=== PATIENT | female | born 1960 | race Caucasian/White ===

== ENCOUNTER → 2019-04-08 10:54 | Outpatient (CLI) | payer MEDICARE, MEDICAID | END | disposition home or self-care (01) | LOC: D.NM 10:54 | PROVIDERS: ATTEND Internal Medicine Gastroenterology | DX: R11.2 Nausea with vomiting, unspecified (principal); R10.13 Epigastric pain; R12 Heartburn ==

== ENCOUNTER → 2019-04-12 07:56 | Outpatient (CLI) | payer MEDICARE, MEDICAID | END | disposition home or self-care (01) | LOC: D.RAD 07:56 | PROVIDERS: ATTEND Internal Medicine Gastroenterology | DX: R11.2 Nausea with vomiting, unspecified (principal); K21.9 Gastro-esophageal reflux disease without esophagitis; R10.13 Epigastric pain ==

== ENCOUNTER 2020-04-23 07:29 | Day surgery (SDC) | payer MEDICARE, MEDICAID ==
[~2020-04-23] VITALS: Ht 152.4 cm; Wt 107.7 kg
--- NOTE | ~2020-04-23 | OP ---
PATIENT NAME: PAM GRANT MEDICAL RECORD: [id number] :56 LOCATION:[facility] ADMISSION DATE: SURGEON: DOMINGA UNGER DO DATE OF OPERATION: 04/23/2020 PROCEDURE: Colonoscopy with polypectomy. INDICATION FOR PROCEDURE: History of colon polyps and a family history positive for colon cancer in the patient's brother. SCOPE: Olympus video pediatric colonoscope. MEDICATIONS: Propofol 700 mg IV per anesthesia. WITHDRAWAL TIME: 18 minutes. ESTIMATED BLOOD LOSS: Minimal. COMPLICATIONS: None. FINDINGS: Informed consent was given. The patient was sedated and intubated for protection of her airway. She was placed on her left side. A digital rectal examination was performed and was normal. The endoscope was then advanced under direct visualization through the rectum to the cecum, confirmed by the presence of the appendiceal orifice and ileocecal valve. The endoscope was slowly withdrawn. Mucosa was carefully examined. Prep quality was poor. There was some retained fluid and contents in the cecum and a small amount throughout the entire colon, which made some visualization impossible. That being said, mucosa outside of the cecum was adequately visualized. There was 1 polyp visualized on today's examination. It was a benign-appearing sessile polyp located in the ascending colon, which measured approximately 3-4 mm in diameter. It was removed using hot forceps. There were no other polyps seen. There was no evidence of diverticulosis. Retroflexion was performed in the rectum with visualization of grade I internal hemorrhoids without bleeding. The endoscope was withdrawn from the patient. The patient tolerated the procedure well and there were no complications. IMPRESSION: 1. A single benign-appearing sessile polyp located in the ascending colon, status post polypectomy with hot forceps. 2. Grade I internal hemorrhoids without bleeding. PLAN AND RECOMMENDATIONS: 1. Discharge home when recovery parameters are met. 2. Follow up biopsy specimen results. 3. High-fiber diet. 4. Continue current medications. 5. Recall colonoscopy in 3 years. NTS:[id number] Voice Confirmation ID: [id number] DOCUMENT ID: [id number] OPERATIVE REPORT [id number] PAM GRANT DOMINGA UNGER DO CC: [id number] DICTATION DATE: 04/23/20 1042 [place]: 04/23/202119 [facility] [place] 04/23/20 [facility] [address] [place] [address]
[2020-04-23 07:55] LABS: HEMATOCRIT 36.9 % (36.0-48.0); HEMOGLOBIN 11.4 g/dL (12-16); MCH 26.6 pg (26.0-34.0); MCHC 30.9 g/dL (31.0-37.0); MEAN PLATELET VOLUME 9.8 fL (7.4-10.4); RBC 4.29 10x6/uL (4.00-5.40); RDW 15.1 % (11.5-14.5); WBC 6.1 10x3/uL (4.8-10.8)
[2020-04-23 08:02] LABS: ALBUMIN 3.9 g/dL (3.4-5.0); ANION GAP 13.1 mmol/L (8-16); BILIRUBIN - TOTAL 0.41 mg/dL (0.2-1.3); CALCIUM 9.3 mg/dL (8.5-10.1); CARBON DIOXIDE 27.8 mmol/L (21.0-32.0); CREATININE - SERUM 1.4 mg/dL (0.6-1.3); POTASSIUM - SERUM 4.9 mmol/L (3.5-5.1); PROTEIN - SERUM 8.3 g/dL (6.4-8.2)
[2020-04-23] MEDS ORDERED: ULTRAM50 MG PO (08:07)
[2020-04-23] MEDS ORDERED: DONEPEZIL HCL5 MG PO (08:07)
[2020-04-23] MEDS ORDERED: BUSPAR 15 MG TA15 MG PO (08:08)
[2020-04-23] MEDS ORDERED: LYRICA50 MG PO (08:09)
[2020-04-23] MEDS ORDERED: ZETIA10 MG PO (08:09)
[2020-04-23] MEDS ORDERED: ZOLOFT100 MG PO (08:10)
[2020-04-23] MEDS ORDERED: REGLAN5 MG PO (08:10)
[2020-04-23] MEDS ORDERED: GLUCOPHAGE500 MG PO (08:11)
[2020-04-23] MEDS ORDERED: LISINOPRIL10 MG PO (08:11)
[2020-04-23] MEDS ORDERED: ZANAFLEX4 MG PO (08:11)
[2020-04-23] MEDS ORDERED: FISH OIL 1,0001 CA1 PO (08:12)
[2020-04-23] MEDS ORDERED: SUPER B COMPLE1 EAC1 PO (08:13)
[2020-04-23 08:19] VITALS: BP 107/72; Ht 152.4 cm; Wt 107.7 kg
--- NOTE | 2020-04-23 11:45 | NUR ---
PATIENT DRESSED IN PERSONAL CLOTHING. PIV DC'D WITH TIP INTACT. DISCHARGE INSTRUCTIONS REVIEWED WITH PATIENT AND ANGY, DISCHARGED HOME VIA WHEELCHAIR TO PRIVATE VEHICLE WITH DAUGHTER
== END 2020-04-23 11:45 | disposition home or self-care (01) ==
LOC: D.OPS 07:29
PROVIDERS: Anesthesiology; ATTEND Internal Medicine Gastroenterology
DX: Z86.010 Personal history of colon polyps (principal); Z80.0 Family history of malignant neoplasm of digestive organs; K63.5 Polyp of colon; K64.0 First degree hemorrhoids; K21.9 Gastro-esophageal reflux disease without esophagitis